=== PATIENT | male | born 1940 | race Caucasian/White ===

== ENCOUNTER → 2018-12-16 | Outpatient (CLI) | payer MEDICARE ==
[~2018-12-16] MED LIST: AMLO1CAP9 PO
--- NOTE | 2018-12-16 14:36 | Diagnostic Imaging Report ---
PROCEDURE: MRI lumbar spine. TECHNIQUE: Multiplanar, multisequence MRI of the lumbar spine was performed without contrast. INDICATION: Lower back pain. COMPARISON: None. FINDINGS: For the purposes of this exam, last well-formed disc space is denoted at the L5-S1 level. Evaluation of static alignment demonstrates mild dextroscoliotic deformity. There is also slight grade 1 anterolisthesis at L3-L4 and slight grade 1 retrolisthesis at L4-L5. There is no evidence of jumped facets. Vertebral body heights are maintained. There is no evidence of acute fracture. Evaluation of marrow signal demonstrates mixed Modic type I and type II change involving the adjacent endplates at L4-L5. Otherwise, marrow signal is unremarkable. There is also moderate multilevel intervertebral disc height loss as well as multilevel anterior and posterior disc bulging. Visualized portions of the distal cord are unremarkable. Conus terminates at approximately the T11-T12 level. No abnormal intrathecal filling defects are seen. Pre-and paravertebral soft tissue structures are unremarkable. Axial images demonstrate the following: L1-L2: There is broad-based posterior disc bulge, eccentric to the right. There is also mild bilateral ligamentum flavum laxity and facet arthropathy. As a result, there is mild narrowing of spinal canal and left neuroforamen. There is moderate narrowing on the right. L2-L3: There is broad-based posterior disc bulge with bilateral ligamentum flavum laxity and facet arthropathy. As a result, there is moderate spinal canal stenosis as well as moderate stenosis of the left neuroforamen and mild narrowing on the right. L3-L4: There is broad-based posterior disc bulge with eccentric bilateral ligamentum flavum laxity and facet arthropathy. As a result, there is severe spinal canal stenosis. Thecal sac is narrowed approximately 5 mm in diameter. There is also mild narrowing of the bilateral neuroforamen. L4-L5: There is mild broad-based posterior disc bulge as well as mild bilateral ligamentum flavum laxity and facet arthropathy. As a result, there is mild narrowing of the spinal canal and bilateral neuroforamen. L5-S1: There is central posterior disc protrusion superimposed on broad-based posterior disc bulge as well as bilateral facet arthropathy. There is no significant spinal canal stenosis. There is moderate narrowing of the bilateral neuroforamen. IMPRESSION: 1. 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 2. No acute fracture or dislocation of the lumbar spine. Dictated by: Dictated on workstation # [id number]
== END ==
LOC: RAD 13:35
PROVIDERS: ATTEND Neurological Surgery
DX: M47.816 Spondylosis without myelopathy or radiculopathy, lumbar region (principal)
CPT/HCPCS: 72148